=== PATIENT | female | born 1980 | race Two or more races ===

== ENCOUNTER 2017-09-22 04:00 | Emergency (ER) | payer BC, OTHER ==
[~2017-09-22] VITALS: Ht 157.5 cm; Wt 76.7 kg
[2017-09-22 04:01] VITALS: BP 122/83
[2017-09-22] MEDS ORDERED: LIDOCAINE-MPF 2%, 2ML ONE (05:02)
[2017-09-22] MEDS ORDERED: DIPH,PERTUSS(ACELL),TET VAC/PF 0.5 ML IM-VACC ONE (06:13)
[2017-09-22] MEDS ORDERED: DIPH,PERTUSS(ACELL),TET VAC/PF NC IM-VACC ONE (06:30)
== END 2017-09-22 06:28 | disposition home or self-care (01) ==
LOC: ED 06:22
DX: S61.512A Laceration without foreign body of left wrist, initial encounter (principal); S61.412A Laceration without foreign body of left hand, initial encounter; W19.XXXA Unspecified fall, initial encounter; Y93.89 Activity, other specified; Y99.8 Other external cause status; Y92.89 Other specified places as the place of occurrence of the external cause
CPT/HCPCS: 12005; 90471; 90715